=== PATIENT | female | born 1990 | race Hispanic/Latino ===

== ENCOUNTER 2018-03-10 19:35 | Emergency (ER) | payer OTHER ==
[~2018-03-10] VITALS: Ht 162.6 cm; Wt 87.8 kg
[2018-03-10] MEDS ORDERED: CLOTRIMAZOLE15 GM TP (21:48)
[2018-03-10 21:58] VITALS: BP 135/79
[2018-03-10 22:11] LABS: CANDIDA DNA PROBE POSITIVE; GARDNERELLA DNA PROBE NEGATIVE; TRICHOMONAS DNA PROBE NEGATIVE
== END 2018-03-10 22:02 | disposition home or self-care (01) ==
LOC: EME 19:35
PROVIDERS: Physician Assistant
DX: O98.811 Other maternal infectious and parasitic diseases complicating pregnancy, first trimester (principal); B37.3 Candidiasis of vulva and vagina; O99.331 Smoking (tobacco) complicating pregnancy, first trimester; F17.200 Nicotine dependence, unspecified, uncomplicated; Z3A.01 Less than 8 weeks gestation of pregnancy
CPT/HCPCS: 84702; 87480; 87510; 87660; 99281; 99284